=== PATIENT | male | born 1980 | race Caucasian/White ===

== ENCOUNTER 2017-01-02 19:49 | Inpatient (IN) | payer OTHER, SELFPAY ==
[~2017-01-02] VITALS: Ht 175.3 cm; Wt 70.5 kg
[2017-01-02] MEDS ORDERED: SODIUM CHLORIDE 0.9% 1,000ML IVBOLUS ONE (20:00)
[2017-01-02] MEDS ORDERED: FAMOTIDINE 20 MG/2 ML IVP ONE (20:00)
[2017-01-02] MEDS ORDERED: SODIUM CHLORIDE FLUSH 10ML SYR IVF ONE (20:00)
[2017-01-02] MEDS ORDERED: ONDANSETRON 2MG/ML, 2ML IVPush ONE (20:00)
[2017-01-02 20:42] LABS: ASPARTATE AMINO TRANSFERASE 190 U/L (15-37); BLOOD UREA NITROGEN 10 mg/dL (7-18)
[2017-01-02] MEDS ORDERED: FAMOTIDINE 20 MG/2 ML ONE (21:11)
[2017-01-02] MEDS ORDERED: ONDANSETRON 2MG/ML, 2ML ONE (21:11)
[2017-01-02 21:19] LABS: ANISOCYTOSIS 2+; OVALOCYTES 1+
[2017-01-02] MEDS ORDERED: LORazepam 2 MG/ML, 1ML ONE (21:47)
[2017-01-02] MEDS ORDERED: LORazepam 2 MG/ML, 1ML IVPush ONE (22:00)
[2017-01-02] MEDS ORDERED: NS + 20MEQ KCL 1,000 ML IV SCH (23:15)
[2017-01-02] MEDS ORDERED: TRAZODONE 50MG TABLET PO PRN (23:30)
[2017-01-02] MEDS ORDERED: BISACODYL 10 MG SUPP PR PRN (23:30)
[2017-01-02] MEDS ORDERED: hydrALAzine 20 MG/ML, 1ML IVPush PRN (23:30)
[2017-01-02] MEDS ORDERED: ONDANSETRON 2MG/ML, 2ML IVPush PRN (23:30)
[2017-01-02] MEDS ORDERED: POLYETHYLENE GLYCOL 17 GM PACKET PO PRN (23:30)
[2017-01-02] MEDS ORDERED: LABETALOL 5MG/ML, 20ML IVPush PRN (23:30)
[2017-01-02] MEDS ORDERED: ACETAMINOPHEN 325 MG TABLET PO PRN (23:30)
[2017-01-02] MEDS ORDERED: DOCUSATE 100 MG CAPSULE PO PRN (23:30)
[2017-01-02] MEDS ORDERED: cloniDINE 0.1MG PATCH TD SCH (23:30)
[2017-01-03 00:40] VITALS: BP 115/69
[2017-01-03] MEDS ORDERED: IBUP200C8 PO (00:58)
[2017-01-03] MEDS: CEFTRIAXONE PMX 2GM/50ML 50 ML IVPB SCH ×2 (01:28→02:21)
[2017-01-03] MEDS ORDERED: LORazepam 2 MG/ML, 1ML IVPush PRN (02:00)
[2017-01-03] MEDS: NICOTINE 14MG/24 HR PATCH.TD24 TD SCH ×2 (02:13→23:30)
[2017-01-03] MEDS: GABAPENTIN 100 MG CAPSULE PO SCH ×4 (02:13→20:25)
[2017-01-03] MEDS: PANTOPRAZOLE 40 MG IV IVPush SCH ×3 (02:14→20:26)
[2017-01-03] MEDS: VALPROIC ACID 250 MG CAPSULE PO SCH ×4 (02:14→20:25)
[2017-01-03] MEDS: POTASSIUM CHLORIDE 20 MEQ, MAGNESIUM SULFATE 2 GM, THIAMINE 100 MG, MVI ADULT 10 ML, FO... IV SCH (02:57)
[2017-01-03] MEDS: METRONIDAZOLE PMX 500MG/100ML 100 ML IV SCH ×2 (03:09→12:01)
[2017-01-03 06:16] LABS: ASPARTATE AMINO TRANSFERASE 155 U/L (15-37); BLOOD UREA NITROGEN 9 mg/dL (7-18)
[2017-01-03 07:08] LABS: HEPATITIS C VIRUS ANTIBODY Nonreactive (Nonreactive)
[2017-01-03 08:00] VITALS: BP 117/71
[2017-01-03] MEDS ORDERED: FOLIC ACID 1 MG TABLET PO SCH (09:00)
[2017-01-03] MEDS ORDERED: THIAMINE 100MG TABLET PO SCH (09:00)
[2017-01-03] MEDS ORDERED: MAGNESIUM SULFATE PMX 4GM/100M 100 ML IV ONE (10:30)
[2017-01-03] MEDS: LACTULOSE 20 GM/30 ML UDC PO SCH ×3 (11:56→20:25)
[2017-01-03 13:39] VITALS: BP 115/60
[2017-01-03 16:33] LABS: OCCBLD OBC PASS
[2017-01-03 18:17] LABS: OCCBLD OBC PASS
[2017-01-03 20:00] VITALS: BP 107/57
[2017-01-03] MEDS: NS + 40MEQ KCL 1,000 ML IV SCH (20:27)
[2017-01-04] VITALS (9 sets, daily range): BP systolic 97–114; BP diastolic 57–69
[2017-01-04] MEDS: POTASSIUM CHLORIDE 20 MEQ, MAGNESIUM SULFATE 2 GM, THIAMINE 100 MG, MVI ADULT 10 ML, FO... IV SCH (03:48)
[2017-01-04 08:04] LABS: BLOOD UREA NITROGEN 8 mg/dL (7-18)
[2017-01-04 08:09] LABS: ASPARTATE AMINO TRANSFERASE 147 U/L (15-37)
[2017-01-04] MEDS ORDERED: FENTANYL PF 100 MCG/2ML IV PRN (10:00)
[2017-01-04] MEDS ORDERED: ONDANSETRON 2MG/ML, 2ML IVPush PRN (10:00)
[2017-01-04] MEDS ORDERED: PROMETHAZINE 25 MG/ML, 1ML IV PRN (10:00)
[2017-01-04] MEDS ORDERED: HYDROmorphone 1 MG/ML, 1ML IV PRN (10:00)
[2017-01-04] MEDS ORDERED: OXYcodone 5 MG/5 ML ORAL.SOL UDC PO PRN (10:00)
[2017-01-04] MEDS ORDERED: HYDROcodone/APAP 7.5-325MG/15ML UDC PO PRN (10:00)
[2017-01-04] MEDS ORDERED: MEPERIDINE/PF 25MG/0.5ML IVPush PRN (10:00)
[2017-01-04] MEDS ORDERED: MIDAZOLAM 1 MG/ML, 2ML IV PRN (10:00)
[2017-01-04] MEDS ORDERED: PROPOFOL 10 MG/ML, 20ML ONE (11:08)
[2017-01-04] MEDS: VALPROIC ACID 250 MG CAPSULE PO SCH (12:00)
[2017-01-04] MEDS: LACTULOSE 20 GM/30 ML UDC PO SCH ×3 (12:01→21:35)
[2017-01-04] MEDS: GABAPENTIN 100 MG CAPSULE PO SCH ×3 (12:01→21:36)
[2017-01-04] MEDS: NS + 40MEQ KCL 1,000 ML IV SCH (12:01)
[2017-01-04] MEDS: PANTOPRAZOLE 40 MG IV IVPush SCH (12:31)
[2017-01-04] MEDS: OMEPRAZOLE 20 MG CAPSULE.DR PO SCH (16:47)
[2017-01-04] MEDS: SODIUM CHLORIDE 0.9% 1,000 ML IV SCH (21:37)
[2017-01-04] MEDS: NICOTINE 14MG/24 HR PATCH.TD24 TD SCH (23:30)
[2017-01-05 02:00] VITALS: BP 100/60
[2017-01-05] MEDS: POTASSIUM CHLORIDE 20 MEQ, MAGNESIUM SULFATE 2 GM, THIAMINE 100 MG, MVI ADULT 10 ML, FO... IV SCH (03:41)
[2017-01-05 05:26] LABS: ASPARTATE AMINO TRANSFERASE 127 U/L (15-37); BLOOD UREA NITROGEN 6 mg/dL (7-18)
[2017-01-05 06:01] LABS: ANISOCYTOSIS 2+
[2017-01-05 06:02] LABS: MICROCYTOSIS 1+
[2017-01-05 06:03] LABS: OVALOCYTES 1+
[2017-01-05 08:00] VITALS: BP 124/73
[2017-01-05] MEDS: LACTULOSE 20 GM/30 ML UDC PO SCH (08:17)
[2017-01-05] MEDS: GABAPENTIN 100 MG CAPSULE PO SCH (08:17)
[2017-01-05] MEDS: OMEPRAZOLE 20 MG CAPSULE.DR PO SCH (08:17)
[2017-01-05] MEDS ORDERED: CEFDINIR 300 MG CAPSULE PO SCH (09:30)
[2017-01-05] MEDS ORDERED: LACT20SO13 PO (10:39)
[2017-01-05] MEDS ORDERED: CEFD300C37 PO (10:39)
[2017-01-05] MEDS ORDERED: FOLI-17 PO (10:39)
[2017-01-05] MEDS ORDERED: MULT-730 PO (10:39)
[2017-01-05] MEDS ORDERED: THIA100T10 PO (10:39)
[2017-01-05] MEDS ORDERED: ACET325T14 PO (10:39)
[2017-01-05] MEDS ORDERED: PHYT5TAB2 PO (10:39)
[2017-01-05] MEDS ORDERED: OMEP-110 PO (10:39)
[2017-01-05] MEDS: SODIUM CHLORIDE 0.9% 1,000 ML IV SCH (13:00)
[2017-01-09] MEDS ORDERED: cloniDINE 0.1MG PATCH TD SCH (23:30)
== END 2017-01-05 14:26 | disposition home or self-care (01) | DRG 378 ==
LOC: ED 21:45 → EDIP 21:52 → ED 22:02 → 4WST 01-03 00:13
PROVIDERS: ADMIT Internal Medicine; ATTEND Internal Medicine
PROC: 30233N1 Transfusion of Nonautologous Red Blood Cells into Peripheral Vein, Percutaneous Approach (ICD-10-PCS; 2017-01-04)
PROC: 0DB68ZX Excision of Stomach, Via Natural or Artificial Opening Endoscopic, Diagnostic (ICD-10-PCS; principal; 2017-01-04 09:00)
DX: K25.4 Chronic or unspecified gastric ulcer with hemorrhage (principal); D68.4 Acquired coagulation factor deficiency; D62 Acute posthemorrhagic anemia; E72.20 Disorder of urea cycle metabolism, unspecified; K76.6 Portal hypertension; N39.0 Urinary tract infection, site not specified; E44.0 Moderate protein-calorie malnutrition; I85.00 Esophageal varices without bleeding; F17.210 Nicotine dependence, cigarettes, uncomplicated; D53.9 Nutritional anemia, unspecified; E87.6 Hypokalemia; K76.0 Fatty (change of) liver, not elsewhere classified; E88.09 Other disorders of plasma-protein metabolism, not elsewhere classified; K70.10 Alcoholic hepatitis without ascites; E83.42 Hypomagnesemia; D69.6 Thrombocytopenia, unspecified; F10.20 Alcohol dependence, uncomplicated; K44.9 Diaphragmatic hernia without obstruction or gangrene; T39.315A Adverse effect of propionic acid derivatives, initial encounter; K31.89 Other diseases of stomach and duodenum; K70.30 Alcoholic cirrhosis of liver without ascites; K82.8 Other specified diseases of gallbladder; G24.9 Dystonia, unspecified; Z68.23 Body mass index [BMI] 23.0-23.9, adult; Y92.89 Other specified places as the place of occurrence of the external cause; Z91.013 Allergy to seafood; Z80.9 Family history of malignant neoplasm, unspecified; Z88.0 Allergy status to penicillin
CPT/HCPCS: 36415; 76700; 78227; 80053; 80074; 80307; 81001; 82140; 82272; 82607; 82746; 83036; 83605; 83690; 83735; 84100; 84439; 84443; 85014; 85018; 85025; 85610; 85730; 86850; 86900; 86923; 87040; 87077; 87086; 87186; 88305; 93005; 96374; 96375; J0696; J2405; J2704; J3411; J3475; J3480; J7042; A9537; C9113; C9898; J2060; J7030; P9016; S0028

== ENCOUNTER 2017-05-19 00:45 | Inpatient (IN) | payer MEDICAID ==
[~2017-05-19] VITALS: Ht 175.3 cm; Wt 71.6 kg
[~2017-05-19 00:45] MED LIST: ACET325T14 PO; CEFD300C37 PO; FOLI-17 PO; IBUP200C8 PO; LACT20SO13 PO; MULT-730 PO; OMEP-110 PO; PHYT5TAB2 PO; THIA100T10 PO
[2017-05-19] MEDS ORDERED: ONDANSETRON 2MG/ML, 2ML ONE (01:56)
[2017-05-19] MEDS ORDERED: morphine SULFATE 10 MG/ML, 1ML ONE (01:57)
[2017-05-19] MEDS ORDERED: morphine SULFATE 10 MG/ML, 1ML IVPush PRN ×2 (02:00→03:00)
[2017-05-19] MEDS ORDERED: ONDANSETRON 2MG/ML, 2ML IVPush ONE (02:00)
[2017-05-19] MEDS ORDERED: SODIUM CHLORIDE 0.9% 1,000ML IVBOLUS ONE (02:00)
[2017-05-19 02:12] LABS: ASPARTATE AMINO TRANSFERASE 92 U/L (15-37); BLOOD UREA NITROGEN 9 mg/dL (7-18)
[2017-05-19 02:19] LABS: ANISOCYTOSIS 1+; HEMATOCRIT 26.6 % (39.2-51.8); HEMOGLOBIN 9.3 g/dL (13.7-18.0); WHITE BLOOD COUNT 13.6 x10^3/uL (3.4-10)
[2017-05-19 02:20] LABS: HYPOCHROMIA 1+; POLYCHROMASIA 1+
[2017-05-19] MEDS ORDERED: POTASSIUM CHLORIDE 20 MEQ TAB.ER.PRT ONE ×2 (02:56→03:01)
[2017-05-19] MEDS ORDERED: POTASSIUM CHLORIDE 20 MEQ TAB.ER.PRT PO ONE (03:00)
[2017-05-19] MEDS ORDERED: ONDANSETRON 2MG/ML, 2ML IVPush PRN ×2 (03:00→03:30)
[2017-05-19] MEDS ORDERED: POTASSIUM CHLORIDE 20 MEQ, MAGNESIUM SULFATE 2 GM, THIAMINE 100 MG, MVI ADULT 10 ML, FO... IV SCH (03:20)
[2017-05-19] MEDS ORDERED: LORazepam 1MG TABLET PO PRN ×2 (03:30)
[2017-05-19] MEDS ORDERED: NS + 20MEQ KCL 1,000 ML IV SCH (03:30)
[2017-05-19] MEDS ORDERED: DOCUSATE 100 MG CAPSULE PO PRN (03:30)
[2017-05-19] MEDS ORDERED: BISACODYL 10 MG SUPP PR PRN (03:30)
[2017-05-19] MEDS ORDERED: LORazepam 0.5MG TABLET PO PRN (03:30)
[2017-05-19] MEDS ORDERED: POLYETHYLENE GLYCOL 17 GM PACKET PO PRN (03:30)
[2017-05-19] MEDS ORDERED: ONDANSETRON ODT 4 MG PO PRN (03:30)
[2017-05-19] MEDS: NICOTINE 14MG/24 HR PATCH.TD24 TD SCH (03:30)
[2017-05-19 04:57] VITALS: BP 120/66
[2017-05-19] MEDS: POTASSIUM CHLORIDE 20 MEQ, MAGNESIUM SULFATE 2 GM, THIAMINE 100 MG, MVI ADULT 10 ML, FO... IV SCH (05:34)
[2017-05-19] MEDS: OXYcodone IR 5MG TABLET PO PRN (05:49)
[2017-05-19 06:02] LABS: POTASSIUM,URINE RANDOM 21 mmol/L
[2017-05-19 07:04] VITALS: BP 112/59
[2017-05-19] MEDS: PANTOPROZOLE 40MG TABLET PO SCH (07:42)
[2017-05-19 13:12] VITALS: BP 118/64
[2017-05-19] MEDS: SODIUM CHLORIDE 0.9% 1,000 ML IV SCH (16:25)
[2017-05-19 19:32] VITALS: BP 107/53
[2017-05-19] MEDS: ZOLPIDEM 5MG TABLET PO PRN (22:05)
[2017-05-20 00:39] VITALS: BP 108/56
[2017-05-20] MEDS: SODIUM CHLORIDE 0.9% 1,000 ML IV SCH (01:04)
[2017-05-20] MEDS: NICOTINE 14MG/24 HR PATCH.TD24 TD SCH (03:27)
[2017-05-20 04:57] LABS: HEMATOCRIT 23.2 % (39.2-51.8); HEMOGLOBIN 7.9 g/dL (13.7-18.0); WHITE BLOOD COUNT 13.1 x10^3/uL (3.4-10)
[2017-05-20 05:02] LABS: BLOOD UREA NITROGEN 12 mg/dL (7-18)
[2017-05-20] MEDS: POTASSIUM CHLORIDE 20 MEQ, MAGNESIUM SULFATE 2 GM, THIAMINE 100 MG, MVI ADULT 10 ML, FO... IV SCH (05:29)
[2017-05-20 06:02] LABS: ANISOCYTOSIS 1+; HYPOCHROMIA 1+; MICROCYTOSIS 1+; POLYCHROMASIA 1+; TARGET CELLS 1+
[2017-05-20 07:14] VITALS: BP 99/53
[2017-05-20] MEDS: THIAMINE 100MG TABLET PO SCH (08:06)
[2017-05-20] MEDS: PANTOPROZOLE 40MG TABLET PO SCH (08:06)
[2017-05-20] MEDS: FOLIC ACID 1 MG TABLET PO SCH (08:06)
[2017-05-20 13:26] VITALS: BP 113/63
[2017-05-20 19:33] VITALS: BP 112/64
[2017-05-21] MEDS: ZOLPIDEM 5MG TABLET PO PRN (00:29)
[2017-05-21 02:13] VITALS: BP 100/52
[2017-05-21] MEDS: NICOTINE 14MG/24 HR PATCH.TD24 TD SCH (03:30)
[2017-05-21] MEDS: POTASSIUM CHLORIDE 20 MEQ, MAGNESIUM SULFATE 2 GM, THIAMINE 100 MG, MVI ADULT 10 ML, FO... IV SCH (05:33)
[2017-05-21 06:55] VITALS: BP 112/63
[2017-05-21] MEDS: THIAMINE 100MG TABLET PO SCH (09:22)
[2017-05-21] MEDS: PANTOPROZOLE 40MG TABLET PO SCH (09:22)
[2017-05-21] MEDS: FOLIC ACID 1 MG TABLET PO SCH (09:22)
[2017-05-21 12:29] VITALS: BP 113/71
[2017-05-21 13:47] LABS: BLOOD UREA NITROGEN 11 mg/dL (7-18)
[2017-05-21 14:11] LABS: HEMATOCRIT 25.2 % (39.2-51.8); HEMOGLOBIN 8.6 g/dL (13.7-18.0); WHITE BLOOD COUNT 12.3 x10^3/uL (3.4-10)
[2017-05-21 14:12] LABS: DIFF TOTAL CELLS COUNTED 100 CELL DIFF
[2017-05-21 14:15] LABS: ANISOCYTOSIS 2+
[2017-05-21 14:16] LABS: OVALOCYTES 1+; POIKILOCYTOSIS 1+; POLYCHROMASIA 1+; TARGET CELLS 1+
[2017-05-21 16:08] LABS: HIV 1&2 ANTIBODY SCREEN Nonreactive (Nonreactive); HIV-1 p24 ANTIGEN Nonreactive (Nonreactive)
[2017-05-21 19:20] VITALS: BP 128/76
[2017-05-21] MEDS: OXYcodone IR 5MG TABLET PO PRN (21:56)
[2017-05-22 01:04] VITALS: BP 124/73
[2017-05-22] MEDS: NICOTINE 14MG/24 HR PATCH.TD24 TD SCH (03:36)
[2017-05-22] MEDS: POTASSIUM CHLORIDE 20 MEQ, MAGNESIUM SULFATE 2 GM, THIAMINE 100 MG, MVI ADULT 10 ML, FO... IV SCH (05:01)
[2017-05-22] MEDS: PANTOPROZOLE 40MG TABLET PO SCH (07:45)
[2017-05-22 07:53] VITALS: BP 106/56
[2017-05-22] MEDS: FOLIC ACID 1 MG TABLET PO SCH (09:06)
[2017-05-22] MEDS: THIAMINE 100MG TABLET PO SCH (09:06)
[2017-05-22] MEDS: prednisOLONE 15 MG/5 ML ORAL SOLN PO SCH (09:06)
[2017-05-22 13:07] VITALS: BP 113/71
[2017-05-22] MEDS ORDERED: FUROSEMIDE 20 MG/2 ML IV ONE (19:00)
[2017-05-22 19:26] VITALS: BP 106/57
[2017-05-23 00:59] VITALS: BP 114/61
[2017-05-23] MEDS: NICOTINE 14MG/24 HR PATCH.TD24 TD SCH (03:01)
[2017-05-23] MEDS: POTASSIUM CHLORIDE 20 MEQ, MAGNESIUM SULFATE 2 GM, THIAMINE 100 MG, MVI ADULT 10 ML, FO... IV SCH (05:22)
[2017-05-23 08:03] VITALS: BP 121/64
[2017-05-23] MEDS: THIAMINE 100MG TABLET PO SCH (08:11)
[2017-05-23] MEDS: FOLIC ACID 1 MG TABLET PO SCH (08:11)
[2017-05-23] MEDS: PANTOPROZOLE 40MG TABLET PO SCH (08:11)
[2017-05-23] MEDS: prednisOLONE 15 MG/5 ML ORAL SOLN PO SCH (08:12)
[2017-05-23 09:29] LABS: HEMATOCRIT 28.2 % (39.2-51.8); HEMOGLOBIN 9.5 g/dL (13.7-18.0); WHITE BLOOD COUNT 16.8 x10^3/uL (3.4-10)
[2017-05-23 09:30] LABS: BLOOD UREA NITROGEN 14 mg/dL (7-18)
[2017-05-23 09:33] LABS: ASPARTATE AMINO TRANSFERASE 121 U/L (15-37)
[2017-05-23 10:07] LABS: DIFF TOTAL CELLS COUNTED 100 CELL DIFF
[2017-05-23 10:08] LABS: ANISOCYTOSIS 2+; OVALOCYTES 1+; POIKILOCYTOSIS 1+; POLYCHROMASIA 1+; TARGET CELLS 1+; VERIFY COUNTS? YES
[2017-05-23 13:31] VITALS: BP 121/79
[2017-05-23 19:17] VITALS: BP 126/69
[2017-05-24 01:15] VITALS: BP 116/62
[2017-05-24] MEDS: NICOTINE 14MG/24 HR PATCH.TD24 TD SCH (03:15)
[2017-05-24 07:06] VITALS: BP 124/69
[2017-05-24] MEDS ORDERED: MULTIVITAMIN 1 TABLET PO SCH (09:00)
[2017-05-24] MEDS: THIAMINE 100MG TABLET PO SCH (10:23)
[2017-05-24] MEDS: PANTOPROZOLE 40MG TABLET PO SCH (10:23)
[2017-05-24] MEDS: FOLIC ACID 1 MG TABLET PO SCH (10:23)
[2017-05-24] MEDS: prednisOLONE 15 MG/5 ML ORAL SOLN PO SCH (10:24)
[2017-05-24 13:26] VITALS: BP 122/72
[2017-05-24] MEDS ORDERED: ERGO500017 PO (17:26)
[2017-05-24] MEDS ORDERED: FOLI-17 PO (17:26)
[2017-05-24] MEDS ORDERED: MULT1TAB60 PO (17:26)
[2017-05-24] MEDS ORDERED: PRED5TAB PO (17:26)
[2017-05-24] MEDS ORDERED: ERGOCALCIFEROL 50,000 UNIT CAPSULE PO SCH (20:00)
== END 2017-05-24 18:05 | disposition home or self-care (01) | DRG 433 ==
LOC: ED 02:15 → EDIP 03:00 → 3NE 04:55
PROVIDERS: ADMIT Hospitalist; ATTEND Hospitalist
DX: K70.10 Alcoholic hepatitis without ascites (principal); D68.4 Acquired coagulation factor deficiency; K70.30 Alcoholic cirrhosis of liver without ascites; D53.1 Other megaloblastic anemias, not elsewhere classified; E87.1 Hypo-osmolality and hyponatremia; R16.1 Splenomegaly, not elsewhere classified; E87.6 Hypokalemia; F10.20 Alcohol dependence, uncomplicated; D72.829 Elevated white blood cell count, unspecified; D75.89 Other specified diseases of blood and blood-forming organs; D53.9 Nutritional anemia, unspecified; Z87.11 Personal history of peptic ulcer disease; K70.40 Alcoholic hepatic failure without coma; F12.90 Cannabis use, unspecified, uncomplicated; E55.9 Vitamin D deficiency, unspecified; R00.0 Tachycardia, unspecified
CPT/HCPCS: 36415; 71010; 76700; 80048; 80053; 80307; 81001; 82140; 82306; 82436; 82607; 83690; 83735; 83930; 83935; 84133; 84300; 84439; 84443; 85025; 85610; 86703; 87086; 87899; 93005; 96374; 96375; J2405; J3411; J3475; J3480; J7042; G0435; G0480; J1940; J2270; J7030; J7510; J7512